=== PATIENT | female | born 1990 | race Caucasian/White ===

== ENCOUNTER 2016-03-04 22:37 | Emergency (ER) | payer OTHER ==
[~2016-03-04] VITALS: Ht 165.1 cm; Wt 113.4 kg
[~2016-03-04 22:37] MED LIST: AMOXICILLIN500 M2 PO; AMOXICILLIN500 MG PO; IBU800 MG PO; KEFLEX500 MG PO; MEDROL DOSEPAK4 MG PO; MOTRIN800 MG; MOTRIN800 MG PO; Motrin,Rufen800 MG PO; ONE DAILY ESSE1 EACH PO; PNV-SELECT1 TAB; PREDNICOT20 MG PO; PRENATAL1 TA1; PRENATAL1 TA3 PO; PRILOSEC40 MG PO; PROCARDIA10 MG PO; TRAMADOL HCL50 MG; TRAMADOL HCL50 MG PO; ULTRAM50 MG PO; ZITHROMAX Z PA250 MG PO; ZOFRAN4 MG PO; ZYRTEC10 MG PO; Zofran4 MG PO
[2016-03-04] MEDS ORDERED: ANAPROX DS550 MG PO (23:33)
== END 2016-03-04 23:49 | disposition home or self-care (01) ==
LOC: ED 22:37
DX: M79.641 Pain in right hand (principal); F17.200 Nicotine dependence, unspecified, uncomplicated; Z91.011 Allergy to milk products; X58.XXXA Exposure to other specified factors, initial encounter; Y93.89 Activity, other specified; Y92.89 Other specified places as the place of occurrence of the external cause; Y99.9 Unspecified external cause status

== ENCOUNTER → 2016-06-14 | Day surgery (SDC) | payer OTHER ==
[~2016-06-14] VITALS: Ht 162.5 cm; Wt 113.4 kg
[2016-06-14] VITALS (9 sets, daily range): BP systolic 119–140; BP diastolic 52–86
[~2016-06-14] MED LIST changes: +ANAPROX DS550 MG PO; +MULTIPLE VITAMI1 T25 PO; +PERCOCET 325 MG1 TA5 PO
--- NOTE | ~2016-06-14 | WRIGHTHP ---
[place], [place] PATIENT HISTORY AND PHYSICAL EXAM NAME: KO CONNER [facility] #: [id number] UNIT #: [id number] ROOM: DOCTOR: CLIFF CHAPIN MD BIRTHDATE: [birth year] DOS: 06/14/2016 HISTORY OF PRESENT ILLNESS: This is a very pleasant 25-year-old white female, 2, para 2, AB 0, whose last menstrual period was 05/24/2016, who presented 05/11/2016 stating that she had 2 children and these children, her son had some learning disabilities. She also has a job that she really likes and wants to maintain and her spouse that she is happy with and consequently she does not want any further children. The patient appeared to be very mature and asked a number of quite appropriate questions for a tubal ligation. We reviewed the questions and answered more about laparoscopic bilateral salpingectomy or BTL. The patient did state understanding to all this information as well as ACOG recommendations and stated that she would like to proceed with the tubal ligation or bilateral salpingectomy either way. Risks, benefits, indications, potential complications, alternatives, and failure rate were given, understanding stated and she signed a consent. PAST MEDICAL HISTORY: Reveals history of most recent Pap being negative. She has had 2 pregnancies and 2 vaginal deliveries. She did suffer some boothe in 1991 leading to hospitalization. SOCIAL HISTORY: She does not smoke, does not drink. She had the Nexplanon removed last year and has not been using any control since the removal of that Nexplanon on 06/09/2015. ALLERGIES: She has no known allergies. MEDICATIONS: She is taking no medications. REVIEW OF SYSTEMS: Stable. FAMILY HISTORY: Reveals a maternal grandfather having gastric CA and no other abnormalities. PHYSICAL EXAMINATION: GENERAL: Reveals a pleasant white female. She is 5 feet 4 inches, 250 pounds, BMI is 43. VITAL SIGNS: Blood pressure 124/70 and she is in no apparent distress. HEENT: Grossly intact. NECK: Grossly intact. LUNGS: Grossly intact. CARDIAC: Grossly intact. BREASTS: Grossly intact. ABDOMEN: Grossly intact. EXTREMITIES: Grossly intact. NEUROLOGIC: Grossly intact. GENITOURINARY: External genitalia, vagina, and cervix normal. Uterus is anteverted and anteflexed, normal size, configuration, nontender, and mobile. Adnexa were not palpable. RECTAL: Deferred. [place], [place] PATIENT HISTORY AND PHYSICAL EXAM NAME: KO CONNER UNIT #: [id number] ROOM: DOCTOR: CLIFF CHAPIN MD BIRTHDATE: [birth year] ASSESSMENT: A patient who desires fertility determination, and to that end, on 06/14/2016 she will have a laparoscopic bilateral salpingectomy or bilateral tubal banding. CLIFF CHAPIN MD CM:HISPHYS:PATIENT HISTORY AND PHYSICAL EXAMINATION [id number] SOHAIL CHAPIN MD 06/10/16 0841 interface
--- NOTE | ~2016-06-14 | O ---
[place], [place] OPERATIVE NOTE NAME: KO CONNER [facility] #: [id number] UNIT #: [id number] ROOM: DOCTOR: CLIFF CHAPIN MD BIRTHDATE: [birth year] DATE: 06/14/16 PREOPERATIVE DIAGNOSES: Desires fertility termination and significant increase in BMI. POSTOPERATIVE DIAGNOSES: Desires fertility termination and significant increase in BMI. OPERATION: Laparoscopic bilateral tubal banding. SURGEON: Neyda. ANESTHESIA: General. ESTIMATED BLOOD LOSS: Minimal. REPLACEMENTS: IV fluids and Toradol. COMPLICATIONS: There were no complications. The patient's condition to recovery stable. OPERATIVE SUMMARY: The patient was taken to the operating room in supine position, general anesthesia, endotracheal intubation, lithotomy position, prepped and draped in routine manner. Cervix was visualized, grasped with the tenaculum and cervical manipulator placed. A straight cath of the bladder was undertaken. Once this was completed, we turned our attention abdominally where an infraumbilical and suprapubic incisions were made. We initially had some trouble achieving the pneumoperitoneum because we could not get the shorter 5 mm trocar and sleeve and laparoscope into the peritoneal cavity. We went to the longer 5 mm trocar and sleeve and we were able to enter without complication. We then insufflated with CO2 and then placed our suprapubic 8 mm trocar and sleeve for either banding or salpingectomy. A probe was then placed and systematic examination of the pelvis revealed the anterior and posterior cul-de-sacs to be normal. The uterus itself was normal in size, configuration and mobility. The tubes and ovaries were normal. There were no adhesions, no endometriosis, and no other atypicalities. The appendix, liver edge and gallbladder were also grossly intact. Overall, exam of the rest of the upper abdomen was normal. Because of the difficulty and some subcutaneous insufflation and a fair amount of adipose tissue we felt that it might technically be a little more challenging it was necessary for the desire for tubal ligation and rather than do the salpingectomy, we did a bilateral tubal banding. This went without complication and photographs were taken after the successful attempt. Once this was completed, we removed the suprapubic trocar sleeve. An instrument and noting no significant anterior abdominal bleeding the CO2 was allowed to escape, followed by removal of the infraumbilical trocar, sleeve and laparoscope. Each incision was closed with subcuticular 3-0 Monocryl suture, Steri-Strips and dressings placed. Instrumentation was removed from the vagina and noting no excessive vaginal bleeding. The patient was cleaned off, taken out of lithotomy position, awakened, extubated, and transferred to recovery in satisfactory condition with stable vital signs, stable sponge and instrument count, and good hemostasis. [place], [place] OPERATIVE NOTE NAME: KO CONNER UNIT #: [id number] ROOM: DOCTOR: CLIFF CHAPIN MD BIRTHDATE: [birth year] CLIFF CHAPIN MD CM:OPRECORD:OPERATIVE NOTE 6 CLIFF CHAPIN MD 06/17/16 1526 KIMBERLY LLOYD MIS.R
== END | disposition home or self-care (01) ==
LOC: SDC 06-07 10:15
DX: Z30.2 Encounter for sterilization (principal); I10 Essential (primary) hypertension; K21.9 Gastro-esophageal reflux disease without esophagitis; F41.9 Anxiety disorder, unspecified; F32.9 Major depressive disorder, single episode, unspecified; Z86.14 Personal history of Methicillin resistant Staphylococcus aureus infection; Z87.01 Personal history of pneumonia (recurrent); J45.909 Unspecified asthma, uncomplicated; Z82.49 Family history of ischemic heart disease and other diseases of the circulatory system; Z80.0 Family history of malignant neoplasm of digestive organs; Z83.3 Family history of diabetes mellitus

== ENCOUNTER 2016-10-19 14:53 | Emergency (ER) | payer OTHER ==
[~2016-10-19] VITALS: Ht 165.1 cm; Wt 113.4 kg
== END 2016-10-19 16:32 | disposition home or self-care (01) ==
LOC: ED 14:53
DX: S60.221A Contusion of right hand, initial encounter (principal); Z79.899 Other long term (current) drug therapy; Z91.011 Allergy to milk products; W23.0XXA Caught, crushed, jammed, or pinched between moving objects, initial encounter; Y93.89 Activity, other specified; Y92.89 Other specified places as the place of occurrence of the external cause; Y99.8 Other external cause status

== ENCOUNTER 2016-11-23 16:23 | Emergency (ER) | payer OTHER ==
[~2016-11-23] VITALS: Wt 113.4 kg
[2016-11-23] MEDS ORDERED: AUGMENTIN 875875 MG PO (17:41)
[2016-11-23] MEDS ORDERED: PROAIR HFA8.5 GM INH (17:41)
[2016-11-23] MEDS ORDERED: MEDROL DOSEPAK4 MG PO (17:41)
== END 2016-11-23 18:12 | disposition home or self-care (01) ==
LOC: ED 16:23
DX: H65.91 Unspecified nonsuppurative otitis media, right ear (principal); J06.9 Acute upper respiratory infection, unspecified; Z79.899 Other long term (current) drug therapy; Z91.011 Allergy to milk products

== ENCOUNTER 2016-12-17 19:31 | Emergency (ER) | payer OTHER ==
[~2016-12-17] VITALS: Ht 162.5 cm; Wt 113.4 kg
[~2016-12-17 19:31] MED LIST changes: +AUGMENTIN 875875 MG PO; +PROAIR HFA8.5 GM INH
== END 2016-12-17 20:22 | disposition home or self-care (01) ==
LOC: ED 19:31
DX: S61.210A Laceration without foreign body of right index finger without damage to nail, initial encounter (principal); W45.8XXA Other foreign body or object entering through skin, initial encounter; Y93.9 Activity, unspecified; Y92.9 Unspecified place or not applicable; Y99.9 Unspecified external cause status; Z91.011 Allergy to milk products

== ENCOUNTER 2017-01-05 07:47 | Emergency (ER) | payer OTHER ==
[~2017-01-05] VITALS: Ht 165.1 cm; Wt 113.4 kg
== END 2017-01-05 09:36 | disposition home or self-care (01) ==
LOC: ED 07:47
DX: S93.601A Unspecified sprain of right foot, initial encounter (principal); Z91.011 Allergy to milk products; Z79.899 Other long term (current) drug therapy; W01.0XXA Fall on same level from slipping, tripping and stumbling without subsequent striking against object, initial encounter; Y93.89 Activity, other specified; Y92.89 Other specified places as the place of occurrence of the external cause; Y99.8 Other external cause status

== ENCOUNTER → 2017-01-27 | Outpatient (CLI) | payer OTHER | END | disposition home or self-care (01) | LOC: MRI 12:29 | DX: M21.41 Flat foot [pes planus] (acquired), right foot (principal) ==

== ENCOUNTER 2017-03-28 15:42 | Emergency (ER) | payer OTHER ==
[~2017-03-28] VITALS: Ht 165.1 cm; Wt 90.7 kg
[2017-03-28 16:39] LABS: BASO % 0.1 % (0.0-1.0); HEMATOCRIT 36.6 % (37.0-47.0); HEMOGLOBIN 12.3 g/dl (12.0-16.0); LYMPH # 0.6 10*3/uL (1.3-4.4); MEAN CELL VOLUME 84.7 fl (81.0-99.0); MEAN CORPUSCULAR HGB 28.5 pg (27.0-31.0); MEAN CORPUSCULAR HGB CONC 33.6 g/dl (33.0-37.0); MEAN PLATELET VOLUME 11.6 fl (9.6-12.3); MONO # 0.5 10*3/uL (0.1-1.0); MONO % 5.5 % (3.0-9.0); NEUT # 7.8 10*3/uL (2.3-7.9); NEUT % 87.1 % (47.0-73.0); PLATELET COUNT AUTOMATED 201 10*3/uL (130-400); RED BLOOD COUNT 4.32 10*6/uL (4.10-5.10); RED CELL DISTRI WIDTH 13.1 % (0-14.5); WHITE BLOOD COUNT 8.9 10*3/uL (4.8-10.8)
[2017-03-28 16:48] LABS: ACT PARTIAL THROMBO TIME 26.1 SECONDS (20.8-31.5)
[2017-03-28 16:53] LABS: ALBUMIN 3.7 gm/dl (3.1-4.5); ALKALINE PHOSPHATASE 75 U/L (45-117); BUN 11 mg/dl (7-24); CHLORIDE 102 mmol/L (98-107); CREATININE 0.84 mg/dL (0.55-1.02); LIPASE 102 U/L (73-393); POTASSIUM 3.5 mmol/L (3.5-5.1); SGOT/AST 14 IU/L (3-35); SGPT/ALT 22 U/L (12-78); SODIUM 135 mmol/L (136-145); TOTAL PROTEIN 7.6 gm/dL (6.4-8.2)
[2017-03-28 16:57] LABS: TROPONIN I < 0.015 ng/ml (<0.045)
[2017-03-28] MEDS ORDERED: NAPROSYN500 MG PO (19:13)
[2017-03-28] MEDS ORDERED: AUGMENTIN 875875 MG PO (19:48)
== END 2017-03-28 19:22 | disposition home or self-care (01) ==
LOC: ED 15:42
PROVIDERS: Nurse Practitioner Family
DX: J02.0 Streptococcal pharyngitis (principal); R07.1 Chest pain on breathing; Z91.011 Allergy to milk products; Z79.899 Other long term (current) drug therapy

== ENCOUNTER 2017-08-30 12:15 | Emergency (ER) | payer OTHER ==
[~2017-08-30] VITALS: Wt 117.9 kg
[~2017-08-30 12:15] MED LIST changes: +NAPROSYN500 MG PO
[2017-08-30] MEDS ORDERED: CEPHALEXIN500 M1 PO (14:16)
== END 2017-08-30 14:48 | disposition home or self-care (01) ==
LOC: ED 12:15
DX: S61.412A Laceration without foreign body of left hand, initial encounter (principal); S61.512A Laceration without foreign body of left wrist, initial encounter; Z91.011 Allergy to milk products; Z79.899 Other long term (current) drug therapy; W11.XXXA Fall on and from ladder, initial encounter; Y93.89 Activity, other specified; Y92.89 Other specified places as the place of occurrence of the external cause; Y99.8 Other external cause status

== ENCOUNTER → 2017-09-05 | Outpatient (CLI) | payer OTHER ==
[~2017-09-05] MED LIST changes: +CEPHALEXIN500 M1 PO
== END ==
LOC: WOUNDCARE 04:07
DX: S61.412A Laceration without foreign body of left hand, initial encounter (principal); S61.512A Laceration without foreign body of left wrist, initial encounter; X58.XXXA Exposure to other specified factors, initial encounter; Y93.89 Activity, other specified; Y92.89 Other specified places as the place of occurrence of the external cause; Y99.8 Other external cause status

== ENCOUNTER → 2017-09-14 | Outpatient (CLI) | payer OTHER | END | disposition home or self-care (01) | LOC: WOUNDCARE 02:07 | DX: S61.412D Laceration without foreign body of left hand, subsequent encounter (principal); S61.512D Laceration without foreign body of left wrist, subsequent encounter; W11.XXXD Fall on and from ladder, subsequent encounter ==

== ENCOUNTER → 2017-09-20 | Outpatient (CLI) | payer OTHER | END | disposition home or self-care (01) | LOC: WOUNDCARE 15:37 | DX: S61.512D Laceration without foreign body of left wrist, subsequent encounter (principal); S61.412D Laceration without foreign body of left hand, subsequent encounter; W11.XXXD Fall on and from ladder, subsequent encounter ==

== ENCOUNTER → 2017-09-30 | Outpatient (CLI) | payer OTHER | END | disposition home or self-care (01) | LOC: WOUNDCARE 02:32 | DX: S61.412D Laceration without foreign body of left hand, subsequent encounter (principal); S61.512D Laceration without foreign body of left wrist, subsequent encounter; W11.XXXD Fall on and from ladder, subsequent encounter ==

== ENCOUNTER → 2017-10-04 | Outpatient (CLI) | payer OTHER | END | disposition home or self-care (01) | LOC: WOUNDCARE 10:02 | DX: S61.412D Laceration without foreign body of left hand, subsequent encounter (principal); S61.512D Laceration without foreign body of left wrist, subsequent encounter; W11.XXXD Fall on and from ladder, subsequent encounter ==

== ENCOUNTER → 2017-11-03 | Outpatient (CLI) | payer OTHER | END | disposition home or self-care (01) | LOC: WOUNDCARE 05:15 | DX: S61.412D Laceration without foreign body of left hand, subsequent encounter (principal); W11.XXXD Fall on and from ladder, subsequent encounter ==

== ENCOUNTER 2018-01-03 15:00 | Inpatient (IN) | payer OTHER ==
[~2018-01-03] VITALS: Ht 165.1 cm; Wt 115.7 kg
--- NOTE | ~2018-01-03 | EKG ---
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
--- NOTE | ~2018-01-03 | EKG ---
[place], [place] ELECTROCARDIOGRAM REPORT NAME: KO CONNER UNIT #: [id number] ROOM: 529 DOCTOR: DORYS DRAFT REPORT BIRTHDATE: [birth year] [facility] Test Date: 2018-01-03 Test Time: 15:04:49 Pat Name: KO CONNER Department: ER Room: 529 Gender: F Surgeon Chief: Ana De Luna : 1990 Requested By: MELVIN BROTHERS Order Number: [id number] Reading MD: Tim Landaverde MD Measurements Intervals [place] Rate: 70 P: 43 [place]: 175 QRS: 5 QRSD: 86 T: 13 QT: 397 QTc: 429 Interpretive Statements Sinus rhythm Probable left atrial enlargement Baseline wander in lead(s) II,III,aVF Electronically Signed On 01-05-2018 14:29:23 PST by Tim Landaverde MD CM:EKGRPT:ELECTROCARDIOGRAM REPORT 1504 1429 MELVIN PECK DRAFT REPORT MELVIN BROTHERS DO
--- NOTE | ~2018-01-03 | EKG ---
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
[2018-01-03 15:00] VITALS: BP 126/75
[2018-01-03 15:28] LABS: BASO % 0.4 % (0.0-1.0); EOS # 0.3 10*3/uL (0.0-0.4); EOS % 4.1 % (1.0-4.0); HEMATOCRIT 34.8 % (37.0-47.0); HEMOGLOBIN 11.7 g/dl (12.0-16.0); LYMPH # 2.7 10*3/uL (1.3-4.4); LYMPH % 38.5 % (27.0-41.0); MEAN CELL VOLUME 85.7 fl (81.0-99.0); MEAN CORPUSCULAR HGB 28.8 pg (27.0-31.0); MEAN CORPUSCULAR HGB CONC 33.6 g/dl (33.0-37.0); MEAN PLATELET VOLUME 11.3 fl (9.6-12.3); MONO # 0.6 10*3/uL (0.1-1.0); NEUT # 3.3 10*3/uL (2.3-7.9); NEUT % 47.7 % (47.0-73.0); PLATELET COUNT AUTOMATED 225 10*3/uL (130-400); RED BLOOD COUNT 4.06 10*6/uL (4.10-5.10); WHITE BLOOD COUNT 6.9 10*3/uL (4.8-10.8)
[2018-01-03 15:36] LABS: ACT PARTIAL THROMBO TIME 26.3 SECONDS (20.8-31.5)
[2018-01-03 15:47] LABS: ALBUMIN 3.4 gm/dl (3.1-4.5); ALKALINE PHOSPHATASE 68 U/L (45-117); BUN 12 mg/dl (7-24); CHLORIDE 108 mmol/L (98-107); CREATININE 0.99 mg/dL (0.55-1.02); POTASSIUM 3.4 mmol/L (3.5-5.1); SGOT/AST 15 IU/L (3-35); SGPT/ALT 18 U/L (12-78); SODIUM 138 mmol/L (136-145); TOTAL PROTEIN 6.9 gm/dL (6.4-8.2); TROPONIN I < 0.015 ng/ml (<0.045)
[2018-01-03 17:41] VITALS: BP 137/62
[2018-01-03 20:00] VITALS: BP 131/68
[2018-01-03 20:49] LABS: BILIRUBIN NEGATIVE (NEGATIVE); BLOOD NEGATIVE (NEGATIVE); CLARITY CLEAR (CLEAR); COLOR YELLOW (YELLOW); GLUCOSE NEGATIVE (NEGATIVE); KETONE NEGATIVE (NEGATIVE); LEUKO ESTERASE NEGATIVE (NEGATIVE); NITRITE NEGATIVE (NEGATIVE); SPECIFIC GRAVITY 1.015 (1.005-1.030)
[2018-01-03 21:00] LABS: BACTERIA 1+; MUCOUS 3+
[2018-01-04] VITALS: BP 129/70
[2018-01-04 07:52] LABS: BASO % 0.6 % (0.0-1.0); EOS # 0.3 10*3/uL (0.0-0.4); HEMATOCRIT 36.7 % (37.0-47.0); HEMOGLOBIN 11.9 g/dl (12.0-16.0); LYMPH # 1.8 10*3/uL (1.3-4.4); LYMPH % 37.4 % (27.0-41.0); MEAN CELL VOLUME 86.8 fl (81.0-99.0); MEAN CORPUSCULAR HGB 28.1 pg (27.0-31.0); MEAN CORPUSCULAR HGB CONC 32.4 g/dl (33.0-37.0); MEAN PLATELET VOLUME 11.4 fl (9.6-12.3); MONO # 0.4 10*3/uL (0.1-1.0); MONO % 9.4 % (3.0-9.0); NEUT # 2.2 10*3/uL (2.3-7.9); NEUT % 46.4 % (47.0-73.0); PLATELET COUNT AUTOMATED 239 10*3/uL (130-400); RED BLOOD COUNT 4.23 10*6/uL (4.10-5.10); RED CELL DISTRI WIDTH 13.1 % (0-14.5); WHITE BLOOD COUNT 4.7 10*3/uL (4.8-10.8)
[2018-01-04 08:00] VITALS: BP 128/60
[2018-01-04 08:11] LABS: ACT PARTIAL THROMBO TIME 26.3 SECONDS (20.8-31.5)
[2018-01-04 08:19] LABS: BUN 10 mg/dl (7-24); CHLORIDE 109 mmol/L (98-107); CHOLESTEROL 133 mg/dL (<200); CREATININE 0.67 mg/dL (0.55-1.02); HDL CHOLESTEROL 31 mg/dl (40-60); LDL CHOLESTEROL 79 mg/dL (9-159); POTASSIUM 3.9 mmol/L (3.5-5.1); SODIUM 139 mmol/L (136-145); TRIGLYCERIDES 114 mg/dl (<150); VLDL CHOLESTEROL 23 mg/dL (6-40)
[2018-01-04 08:28] LABS: FREE T4 0.97 ng/dl (0.76-1.46)
[2018-01-04 10:40] LABS: VITAMIN D, 25-HYDROXY 18.8 ng/mL (30-100)
[2018-01-04 12:00] VITALS: BP 113/65; BP 130/66
== END 2018-01-04 13:00 | disposition home or self-care (01) | DRG 206 ==
LOC: ED 15:00 → EDHOLD 17:13 → 5E 17:13
PROVIDERS: Emergency Medicine; Nurse Practitioner; Student in an Organized Health Care Education/Training Program
DX: M94.0 Chondrocostal junction syndrome [Tietze] (principal); E44.1 Mild protein-calorie malnutrition; Z68.41 Body mass index [BMI] 40.0-44.9, adult; E87.6 Hypokalemia; J45.20 Mild intermittent asthma, uncomplicated; F41.9 Anxiety disorder, unspecified; E66.01 Morbid (severe) obesity due to excess calories; R00.1 Bradycardia, unspecified; D64.9 Anemia, unspecified; E87.8 Other disorders of electrolyte and fluid balance, not elsewhere classified; Z98.51 Tubal ligation status; Z82.3 Family history of stroke; Z80.6 Family history of leukemia; Z84.89 Family history of other specified conditions; Z91.011 Allergy to milk products

== ENCOUNTER → 2020-09-16 | Outpatient (CLI) | payer OTHER | END | disposition home or self-care (01) | LOC: MAMMO 13:54 | PROVIDERS: ATTEND Nurse Practitioner Family | DX: Z80.3 Family history of malignant neoplasm of breast (principal) ==

== ENCOUNTER 2021-06-20 13:12 | Emergency (ER) | payer OTHER ==
[~2021-06-20] VITALS: Ht 162.5 cm; Wt 123.8 kg
== END 2021-06-20 13:45 | disposition home or self-care (01) ==
LOC: ED 13:12
DX: S61.011A Laceration without foreign body of right thumb without damage to nail, initial encounter (principal); W45.8XXA Other foreign body or object entering through skin, initial encounter; Y93.89 Activity, other specified; Y92.89 Other specified places as the place of occurrence of the external cause; Y99.8 Other external cause status

== ENCOUNTER 2022-06-13 20:46 | Emergency (ER) | payer OTHER ==
[~2022-06-13] VITALS: Ht 165.1 cm; Wt 120.2 kg
== END 2022-06-13 21:17 | disposition home or self-care (01) ==
LOC: ED 20:46
DX: S05.01XA Injury of conjunctiva and corneal abrasion without foreign body, right eye, initial encounter (principal); H10.9 Unspecified conjunctivitis; I10 Essential (primary) hypertension; K21.9 Gastro-esophageal reflux disease without esophagitis; F41.9 Anxiety disorder, unspecified; J45.909 Unspecified asthma, uncomplicated; Z91.011 Allergy to milk products; Z98.51 Tubal ligation status; X58.XXXA Exposure to other specified factors, initial encounter; Y93.H2 Activity, gardening and landscaping; Y92.89 Other specified places as the place of occurrence of the external cause; Y99.8 Other external cause status

== ENCOUNTER 2025-01-08 19:08 | Emergency (ER) | payer OTHER ==
[~2025-01-08] VITALS: Ht 165.1 cm; Wt 126.1 kg
== END 2025-01-08 20:16 | disposition home or self-care (01) ==
LOC: ED 19:08
DX: Z00.00 Encounter for general adult medical examination without abnormal findings (principal); I10 Essential (primary) hypertension; F41.9 Anxiety disorder, unspecified; K21.9 Gastro-esophageal reflux disease without esophagitis; J45.909 Unspecified asthma, uncomplicated; Z98.51 Tubal ligation status; Z91.0110 Allergy to milk products, unspecified